=== PATIENT | female | born 1960 | race Caucasian/White ===

== ENCOUNTER → 2019-02-28 | Outpatient (CLI) | payer OTHER ==
[~2019-02-28] MED LIST: CODACE30; FLUO10; FLUO20; IBUP600; META800 PO; RXHYDACE PO; RXMETA400 PO; TRAZADONE
== END ==
LOC: LAB 13:20 → LAB SHORT 13:20
DX: L24.4 Irritant contact dermatitis due to drugs in contact with skin (principal); L81.4 Other melanin hyperpigmentation
CPT/HCPCS: 87070; 87205

== ENCOUNTER 2021-03-19 08:48 | Day surgery (SDC) | payer OTHER ==
[~2021-03-19] VITALS: Ht 162.6 cm; Wt 82.8 kg
[~2021-03-19 08:48] MED LIST changes: +Budeprion Xl300 MG PO; +MULTI-VITAMIN1 EAC2 PO; +OLANZAPINE7.5 M1 PO; +OMEGA-3 FISH O1 EAC5 PO; +Venlafaxine HC150 MG PO
== END 2021-03-19 11:08 | disposition home or self-care (01) ==
LOC: ORSCSDS 08:48
PROVIDERS: Internal Medicine Gastroenterology
PROC: 0DBN8ZX Excision of Sigmoid Colon, Via Natural or Artificial Opening Endoscopic, Diagnostic (ICD-10-PCS; principal; 2021-03-19 10:30)
DX: Z12.11 Encounter for screening for malignant neoplasm of colon (principal); D12.5 Benign neoplasm of sigmoid colon; K57.30 Diverticulosis of large intestine without perforation or abscess without bleeding; K64.8 Other hemorrhoids; E66.9 Obesity, unspecified; Z68.32 Body mass index [BMI] 32.0-32.9, adult; Z87.891 Personal history of nicotine dependence; Z79.899 Other long term (current) drug therapy
CPT/HCPCS: 88305; J2704; J7120

== ENCOUNTER → 2022-08-31 | Outpatient (CLI) | payer OTHER | END | disposition home or self-care (01) | LOC: LAB 13:48 → LAB SHORT 13:48 | DX: M79.672 Pain in left foot (principal) | CPT/HCPCS: 84550 ==

== ENCOUNTER 2022-09-05 11:16 | Emergency (ER) | payer OTHER ==
[~2022-09-05] VITALS: Ht 162.6 cm; Wt 81.7 kg
[2022-09-05] MEDS ORDERED: HYDR1TAB94 PO (13:48)
[2022-09-05] MEDS ORDERED: CRUTCH4 XX (13:48)
== END 2022-09-05 15:15 | disposition home or self-care (01) ==
LOC: ER 11:16
DX: S86.012A Strain of left Achilles tendon, initial encounter (principal); X58.XXXA Exposure to other specified factors, initial encounter; Z87.891 Personal history of nicotine dependence; Z79.899 Other long term (current) drug therapy
CPT/HCPCS: 73610

== ENCOUNTER → 2024-06-13 | Outpatient (CLI) | payer OTHER ==
[~2024-06-13] MED LIST changes: +CRUTCH4 XX; +HYDR1TAB94 PO
== END | disposition home or self-care (01) ==
LOC: LAB SHORT 08:08 → LAB 08:08
DX: L65.9 Nonscarring hair loss, unspecified (principal); Z79.899 Other long term (current) drug therapy
CPT/HCPCS: 84443